=== PATIENT | male | born 1990 | race Caucasian/White ===

== ENCOUNTER 2017-03-04 23:20 | Emergency (ER) | payer OTHER ==
[2017-03-04 23:56] VITALS: BP 134/79
[2017-03-05] MEDS ORDERED: Erythromycin Base 0.5% Ophth Oint 1 GM Tube EYELF ONE (00:25)
--- NOTE | 2017-03-05 00:32 | EDM.PDOC ---
ED HPI GENERAL MEDICAL PROBLEM - General Chief Complaint: Eye Problems Stated Complaint: EYE INJURY Time Seen by Provider: 03/04/17 23:52 Source of Information: Reports: Patient History Limitations: Reports: No Limitations - History of Present Illness INITIAL COMMENTS - FREE TEXT/NARRATIVE: This is a 26-year-old male. Today he was climbing around in some pipes and got something in his left eye. He was wearing safety glasses at that time. He washed his eye out immediately he did have contacts on and he took out his contacts. He again washed the eye out with a pH wash but he still has irritation of the left eye and is having a hard time opening the left eyelids due to the irritation. He denies any other acute symptoms at this time. Left Eye Pain Score (Numeric/FACES): 5 - Related Data Allergies Allergy/AdvReac Type Severity Reaction Status Date / Time morphine Allergy Rash Verified 03/04/17 23:53 Home Meds: Home Meds . [No Known Home Meds] 03/04/17 [History] Past Medical History - Past Health History Medical/Surgical History: Denies Medical/Surgical History Social & Family History - Tobacco Use Smoking Status *Q: Light Tobacco Smoker Years of Tobacco use: 1 Packs/Tins Daily: 0.5 - Caffeine Use Caffeine Use: Reports: Tea - Recreational Drug Use Recreational Drug Use: No ED ROS GENERAL - Review of Systems Review Of Systems: See Below Constitutional: Denies: Fever, Chills HEENT: Reports: Eye Pain Respiratory: Reports: No Symptoms Cardiovascular: Reports: No Symptoms Endocrine: Reports: No Symptoms GI/Abdominal: Reports: No Symptoms : Reports: No Symptoms Musculoskeletal: Reports: No Symptoms Skin: Reports: No Symptoms Neurological: Reports: No Symptoms Psychiatric: Reports: No Symptoms Hematologic/Lymphatic: Reports: No Symptoms ED EXAM GENERAL W FULL EYE - Physical Exam Exam: See Below Exam Limited By: No Limitations General Appearance: Alert, WD/WN, No Apparent Distress Eye Exam: Left Eye: Other (Left eyelids are somewhat swollen from him rubbing them he cannot open his left eye, proparacaine was used to numb the eye, the upper and lower eyelid was everted and no foreign body was seen, fluorsciene stain shows a corneal abrasion at about the 3 o'clock position midway between the center in the periphery about 1 mm in size) Eyelids: Bilateral: Edema Cornea Exam: Left: Corneal Abrasion (It is at the 3 o'clock position midway between the center and periphery of the cornea about 1 mm in size) Extraocular Movements: Bilateral: Intact Pupils: Normal Accommodation Pupillary Reaction: Bilateral: Brisk Anterior Chamber: Left: Normal Appearance Ears: Normal External Exam Nose: Normal Inspection Throat/Mouth: Normal Inspection, Normal Lips, Normal Voice Head: Normocephalic Neck: Supple Respiratory/Chest: No Respiratory Distress Back Exam: Full Range of Motion Extremities: Normal Inspection, Normal Range of Motion Neurological: Alert, Oriented Psychiatric: Normal Affect, Normal Mood Skin Exam: Warm, Dry Course - Vital Signs Last Recorded V/S: Last Vital Signs Temp 97.2 F 03/04/17 23:53 Pulse 84 03/04/17 23:53 Resp 18 03/04/17 23:53 BP 134/79 03/04/17 23:53 Pulse Ox 95 03/04/17 23:53 - Orders/Labs/Meds Orders: Active Orders 24 hr Category Date Time Status Communication Order [RC] STAT Care 03/05/17 00:26 Ordered Meds: Medications Discontinued Medications Generic Name Dose Route Start Last Admin Trade Name Freq PRN Reason Stop Dose Admin Erythromycin 1 gm 03/05/17 00:25 Erythromycin 0.5% Ophth Oint EYELF 03/05/17 00:26 ONETIME ONE - Re-Assessments/Exams Free Text/Narrative Re-Assessment/Exam: 03/05/17 00:33 After we placed erythromycin ointment in the left eye and eye patch was applied. Departure - Departure Time of Disposition: 00:33 Disposition: Home, Self-Care 01 Condition: Good Clinical Impression: Left corneal abrasion Qualifiers: Encounter type: initial encounter Qualified Code(s): S05.02XA - Injury of conjunctiva and corneal abrasion without foreign body, left eye, initial encounter - Discharge Information Forms: ED Department Discharge Additional Instructions: Wear the eye patch for the next 24 hours and then you may take it off, use the Blink tear drops once the eye patch is off and do not rub your eye because it will cause the abrasion to get worse, do not wear contacts in that left eye for at least one week, return to the ER as needed or follow up with the designated medical provider for the company as needed - My Orders Last 24 Hours: My Active Orders 03/05/17 00:26 Communication Order [RC] STAT - Assessment/Plan Last 24 Hours: My Active Orders 03/05/17 00:26 Communication Order [RC] STAT
== END 2017-03-05 00:42 | disposition home or self-care (01) ==
LOC: JD.ED 23:20
DX: S05.02XA Injury of conjunctiva and corneal abrasion without foreign body, left eye, initial encounter (principal); F17.210 Nicotine dependence, cigarettes, uncomplicated; Z88.5 Allergy status to narcotic agent; X58.XXXA Exposure to other specified factors, initial encounter
CPT/HCPCS: 99283; A9270